=== PATIENT | female | born 1975 | race Caucasian/White ===

== ENCOUNTER 2019-03-05 21:26 | Emergency (ER) | payer OTHER ==
[~2019-03-05] VITALS: Ht 170.2 cm; Wt 126.8 kg
[~2019-03-05 21:26] MED LIST: AMLO-512 PO; BUPR150T8 PO; CHL25 PO; FLUC150T66 PO; GLIP5 PO; METF-960 PO; METO50 PO
[2019-03-05 21:54] LABS: GLUCOSE,POINT OF CARE 418 MG/DL (70-110)
[2019-03-05] MEDS ORDERED: SODIUM CHLORIDE 0.9% 1,000 ML IV ONE (22:00)
[2019-03-05] MEDS ORDERED: KETOROLAC TROMETHAMINE 30 MG/ML VIAL IVP ONE (22:30)
[2019-03-05] MEDS ORDERED: POVIDONE-IODINE 10% 15 ML SOLUTION UD TP ONE (22:30)
[2019-03-05] MEDS ORDERED: LIDOCAINE 1% 10 ML VIAL INJ ONE (22:30)
[2019-03-05] MEDS ORDERED: CloNIDine HCL 0.1 MG TABLET PO ONE (23:45)
[2019-03-05] MEDS ORDERED: INSULIN REGULAR, HUMAN 100 UNITS/ML IVP ONE (23:45)
[2019-03-06 00:14] LABS: GLUCOSE,POINT OF CARE 346 MG/DL (70-110)
[2019-03-06 00:14] LABS: GLUCOSE,POINT OF CARE 305 MG/DL (70-110)
[2019-03-06 00:22] VITALS: BP 194/103
== END 2019-03-06 00:25 | disposition home or self-care (01) ==
LOC: EMS 21:36
DX: L02.414 Cutaneous abscess of left upper limb (principal); I10 Essential (primary) hypertension; E11.65 Type 2 diabetes mellitus with hyperglycemia; F32.9 Major depressive disorder, single episode, unspecified; F17.210 Nicotine dependence, cigarettes, uncomplicated; Z88.0 Allergy status to penicillin
CPT/HCPCS: 10060; 36415; 82948; 82962; 84702; 96361; 96374; 96375; 99285; J1815; J1885; J3490; J7030